=== PATIENT | male | born 1990 | race Asian ===

== ENCOUNTER 2018-01-30 21:04 | Emergency (ER) | payer SELFPAY ==
[~2018-01-30] VITALS: Ht 177.8 cm; Wt 77.5 kg
[2018-01-30] MEDS ORDERED: LORAZEPAM 1MG TABLET PO ONE (21:45)
[2018-01-30] MEDS ORDERED: ONDANSETRON 4MG ODT PO ONE (21:45)
[2018-01-30 22:39] LABS: BASOPHILS % 0.4 % (0.0-2.0); EOSINOPHILS % 0.3 % (0.0-5.0); HEMATOCRIT. 41.7 % (42.0-52.0); HEMOGLOBIN. 14.3 g/dL (14.0-18.0); MEAN CORPUSCULAR HEMOGLOBIN 29.9 pg (28.0-32.0); MEAN CORPUSCULAR VOLUME 87.3 fL (80.0-94.0); MEAN PLATELET VOLUME 9.7 fl (7.4-10.4); MONOCYTES % 7.2 % (2.0-8.0); NEUTROPHILS % 83.1 % (40.0-76.0); PLATELET 195 x1000/uL (130-400); RED BLOOD CELL COUNT 4.78 mill/uL (4.7-6.1)
[2018-01-30 22:41] LABS: CHLORIDE 102 mEq/L (98-107)
[2018-01-30 22:45] LABS: ETHANOL BLOOD 10 mg/dL
[2018-01-31 02:02] VITALS: BP 142/75
== END 2018-01-31 02:04 | disposition home or self-care (01) ==
LOC: ER 21:04
DX: T40.7X1A Poisoning by cannabis (derivatives), accidental (unintentional), initial encounter (principal); R00.2 Palpitations; R00.0 Tachycardia, unspecified; R20.0 Anesthesia of skin; R11.0 Nausea; Z88.9 Allergy status to unspecified drugs, medicaments and biological substances; Y92.89 Other specified places as the place of occurrence of the external cause
CPT/HCPCS: 36415; 80053; 85025; 93005; 99285; G0482; Q0162

== ENCOUNTER 2020-04-08 19:13 | Emergency (ER) | payer SELFPAY ==
[~2020-04-08] VITALS: Ht 170.2 cm; Wt 69.0 kg
[2020-04-09 00:03] LABS: BASOPHILS % 0.4 % (0.0-2.0); EOSINOPHILS % 1.4 % (0.0-5.0); HEMATOCRIT. 42.8 % (42.0-52.0); MEAN CORPUSCULAR HEMOGLOBIN 30.9 pg (28.0-32.0); MEAN CORPUSCULAR VOLUME 87.8 fL (80.0-94.0); MEAN PLATELET VOLUME 10.1 fl (7.4-10.4); MONOCYTES % 5.5 % (2.0-8.0); NEUTROPHILS % 69.7 % (40.0-76.0); PLATELET 200 x1000/uL (130-400); RED BLOOD CELL COUNT 4.87 mill/uL (4.7-6.1); RED CELL DISTRIBUTION WIDTH 12.7 % (11.6-14.6)
[2020-04-09 00:26] LABS: CHLORIDE 103 mEq/L (98-107)
[2020-04-09 00:30] LABS: ETHANOL BLOOD < 10 mg/dL
[2020-04-09 00:35] LABS: T4 FREE 1.03 ng/dL (0.76-1.46)
[2020-04-09 00:36] LABS: *BARBITURATES SCREEN URINE NEGATIVE (NEGATIVE); *BENZODIAZEPINES SCREEN URINE NEGATIVE (NEGATIVE); *COCAINE SCREEN URINE NEGATIVE (NEGATIVE); METHADONE URINE SCREEN NEGATIVE (NEGATIVE)
[2020-04-09 00:37] LABS: *AMPHETAMINES SCREEN URINE NEGATIVE (NEGATIVE); CANNABINOID URINE SCREEN NEGATIVE (NEGATIVE); OPIATES URINE SCREEN NEGATIVE (NEGATIVE); PHENCYCLIDINE URINE SCREEN NEGATIVE (NEGATIVE)
[2020-04-09 01:36] VITALS: BP 125/81
== END 2020-04-09 01:40 | disposition home or self-care (01) ==
LOC: ER 19:13
DX: R00.2 Palpitations (principal); I34.1 Nonrheumatic mitral (valve) prolapse; F12.10 Cannabis abuse, uncomplicated
CPT/HCPCS: 36415; 71045; 80053; 80305; 80320; 84439; 84443; 85025; 93005; 99285; G0480